=== PATIENT | female | born 1940 | race Caucasian/White ===

== ENCOUNTER → 2017-06-03 | Outpatient (CLI) | payer MEDICARE ==
--- NOTE | 2017-06-03 13:15 | Diagnostic Imaging Report ---
PROCEDURE: MRI left upper extremity without contrast. TECHNIQUE: Multiplanar, multisequence non contrast-enhanced MRI of the left upper extremity was accomplished. INDICATION: Fall on February 23 with left shoulder pain. FINDINGS: There is no os acromiale or Hill-Sachs deformity. The acromioclavicular joint demonstrates mild osteoarthritic changes with superior osteophytes. Very minimal inferior osteophytes are seen. The supraspinatus demonstrates background tendinosis with a focal high-grade partial tear involving the mid and posterior fibers of the supraspinatus which appears to extend to the undersurface of the tendon. The infraspinatus demonstrates tendinosis. The subscapularis demonstrates no definite tear. The long head biceps tendon is in its groove with no definite abnormality. The posterior superior aspect of the labrum is attenuated which could be related to degeneration or a tear. The bone marrow signal is within normal limits. There is normal muscle signal and bulk. IMPRESSION: 1. Rotator cuff tendinosis with a prominent partial tear in the mid to posterior fibers of the supraspinatus that appears to extend to the articular surface of the tendon. 2. Mild AC joint OA. 3. Poor visualization of the superior posterior aspect of the labrum, could be related to degeneration or tear. Dictated by: Dictated on workstation # [id number]
== END ==
LOC: RAD 11:43
PROVIDERS: ATTEND Orthopaedic Surgery
DX: M75.92 Shoulder lesion, unspecified, left shoulder (principal); M75.102 Unspecified rotator cuff tear or rupture of left shoulder, not specified as traumatic
CPT/HCPCS: 73221

== ENCOUNTER → 2017-06-10 | Outpatient (CLI) | payer MEDICARE ==
--- NOTE | 2017-06-12 13:59 | Diagnostic Imaging Report ---
Bilateral screening mammogram 2D views with tomosynthesis The current study was also evaluated with a Computer Aided Detection (CAD) system. INDICATION: Screening. No current complaints stated on the questionnaire. COMPARISON: 06/06/2015. FINDINGS: The breasts are composed of scattered fibroglandular densities. There are scattered benign-appearing calcifications. Stable nodular densities are seen in the left breast from multiple prior exams including 02/27/2011 is compatible with benign etiology. Allowing for technique and positional differences, no suspicious change is seen. IMPRESSION: No significant change. ACR BI-RADS Category 2: Benign findings. Result letter will be mailed to the patient. Note: At least 10% of breast cancer is not imaged by mammography. Dictated on workstation # [id number]
== END ==
LOC: RAD 11:07
PROVIDERS: ATTEND Internal Medicine
DX: Z12.31 Encounter for screening mammogram for malignant neoplasm of breast (principal)
CPT/HCPCS: 77067

== ENCOUNTER → 2017-10-27 | Outpatient (CLI) | payer MEDICARE ==
--- NOTE | 2017-10-27 11:06 | Diagnostic Imaging Report ---
PROCEDURE: CT lumbar spine without contrast. TECHNIQUE: Multiple contiguous axial images were obtained through the lumbar spine without the use of intravenous contrast. Sagittal and coronal reformations were then performed. INDICATION: Back pain. COMPARISON: There are no previous CT lumbar spine examinations available for comparison. FINDINGS: The MRI lumbar spine exam of 01/11/2015 noted borderline trefoil stenosis at L4-5 and narrowing of the neural foramen on the left. On this study, the trefoil stenosis at the L4-5 level does seem slightly worse than on the prior exam. There is persistent narrowing of the neural foramen on the left as well. The MRI exam also indicated borderline trefoil stenosis at L3-4 and narrowing of the neural foramen on the right at this level. There does not seem to have been any significant change in the degenerative disease at the L3-4 level. There is still no evidence for spinal stenosis or nerve root encroachment at L1-2. The degenerative disease involving the opposing endplates of L2 and L3 seen on the MRI exam does seem to have worsened somewhat on this study. This is particularly true of the right lateral aspect of the L2-3 disc space. There is no clear evidence for central stenosis at this level but there does seem to be greater narrowing of the neural foramen on the right than on the prior study. The broad-based disc bulge centrally at the L5-S1 level seen previously is somewhat more prominent; however, there is still no evidence for central stenosis at this level. There is greater narrowing of the neural foramen, however, particularly on the right. There is no fracture or acute bony abnormality evident. There is no sign of a paraspinal mass. IMPRESSION: 1. 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 The degenerative disease at L2-3 on the right has also progressed since the prior study. Also, while there is no evidence for central stenosis at the L5-S1 level, there does seem to be greater narrowing of the neural foramen bilaterally, particularly on the right. 2. There is no sign of an acute bony abnormality. Dictated by: Dictated on workstation # [id number]
--- NOTE | 2017-10-27 12:27 | Diagnostic Imaging Report ---
CLINICAL INDICATION: Patient with low back pain with no known trauma. EXAMINATION: MRI of the lumbar spine performed without IV contrast. COMPARISON: MRI of the lumbar spine performed without IV contrast dated 01/11/2015. FINDINGS: There is no evidence of acute lumbar spine fracture. There is Modic type I degenerative signal changes involving the L2-L3 endplate which has slightly decreased compared to the prior study. There is near complete resolution of the Modic type I degenerative signal changes involving the right side of the L1-L2 endplates. The remainder of the lumbar vertebra shows no significant signal abnormality. The conus medullaris tip is seen at the L1-L2 intervertebral level. The visualized portions of the distal thoracic spinal cord, conus medullaris, and cauda equina nerve roots are unremarkable. There is no significant paraspinal soft tissue abnormality. Again seen multiple small cystic changes seen in the bilateral renal hilum regions which may be related to parapelvic cysts. There are hypertrophic spurs seen throughout the thoracic and lumbar spine. T12-L1: There is mild facet arthropathy. There is no significant central spinal canal or neural foramen narrowing. L1-L2: There is interval development of grade 1 retrolisthesis of L1 on L2 which is roughly 3 mm and was not noted on the prior study. There is development of a diffuse disc bulge and moderate loss of intervertebral disc height which has progressed. There is now severe bilateral neural foramen narrowing which has progressed. There is mild central canal narrowing which has minimally progressed. There is mild bilateral facet arthropathy. L2-L3: There is progression of subtle grade 1 retrolisthesis of L2 on L3 which is roughly 2 mm and not significantly seen on the prior study. There is progression of diffuse disc bulge with moderate loss of intervertebral disc height Schmorl's nodes involving the inferior endplate of the L2 vertebral body. There is moderate bilateral facet arthropathy. There is rswo-by-gjrabjts central canal narrowing and severe bilateral neural foramen narrowing which has progressed. L3-L4: Again seen mild diffuse disc bulge and sqyfihao-sn-ehtkck bilateral facet arthropathy/hypertrophy. There is mild ligamentum flavum buckling. There is stable ewzf-ky-edjaqsau central canal narrowing. There is mpaolfct-hd-joanwd left neural foramen narrowing and cfyy-cl-drbfwxlm right neural foramen narrowing which is stable. L4-L5: Stable subtle grade 1 anterolisthesis of L4 on L5 with no pars defect seen. There is a diffuse disc bulge with moderate loss of intervertebral disc height. There is severe bilateral facet arthropathy/hypertrophy. There is mild central canal narrowing. There is iobo-qz-zukytffy right neural foramen narrowing and moderate left neural foramen narrowing which is stable. L5-S1: There is no significant disc bulge. There is severe right facet arthropathy/hypertrophy and mild left facet arthropathy. There is no significant central canal narrowing. There is mild bilateral neural foramen narrowing. IMPRESSION: 1: There is iekmriaa-am-srlmjt multilevel lumbar spine degenerative disc disease which has progressed at the L1-L2 and L2-L3 levels. This described in detail above. 2: There is interval development of grade 1 retrolisthesis of L1 on L2 and L2 on L3 with progression of disc disease, which is described in detail above. There is stable grade 1 anterolisthesis of L4 on L5. 3: The remainder of the lumbar spine is not significantly changed in the interim. Dictated by: Dictated on workstation # [id number]
== END ==
LOC: RAD 09:02
PROVIDERS: ATTEND Orthopaedic Surgery Orthopaedic Surgery of the Spine
DX: M48.07 Spinal stenosis, lumbosacral region (principal); M46.85 Other specified inflammatory spondylopathies, thoracolumbar region; M46.87 Other specified inflammatory spondylopathies, lumbosacral region; M43.16 Spondylolisthesis, lumbar region; M51.26 Other intervertebral disc displacement, lumbar region; M51.36 Other intervertebral disc degeneration, lumbar region
CPT/HCPCS: 72131; 72148

== ENCOUNTER → 2021-11-27 | Outpatient (CLI) | payer MEDICARE ==
--- NOTE | 2021-11-27 11:45 | Diagnostic Imaging Report ---
EXAMINATION: CT abdomen and pelvis without contrast. TECHNIQUE: Multiple contiguous axial images were obtained through the abdomen and pelvis without the use of intravenous contrast. All CT scans use one or more of the following dose optimizing techniques: Automated exposure control, MA and/or KvP adjustment based on patient size and exam type or iterative reconstruction. HISTORY: Urinary tract infection. COMPARISON: None available. FINDINGS: Limited views of the lower thorax are unremarkable. Simple cysts are seen in the liver. No suspicious liver lesions. There is no biliary ductal dilation. The gallbladder is surgically absent. Pancreas is normal. Spleen is absent. There is a 10 mm left adrenal adenoma, a benign finding. The kidneys are normal. There is no hydronephrosis. Urinary bladder is normal. No renal or ureteral stones. Bowel is normal in caliber without obstruction or inflammation. The appendix is normal. No free fluid or air. No abdominal or pelvic lymphadenopathy. Aorta is normal in caliber without aneurysm. There are no suspicious osseous lesions. IMPRESSION: 1. No acute abnormality in the abdomen or pelvis. Dictated by: Dictated on workstation # [id number]
== END ==
LOC: RAD 10:15
PROVIDERS: ATTEND Urology
DX: Z87.440 Personal history of urinary (tract) infections (principal)
CPT/HCPCS: 74176